=== PATIENT | male | born 1940 | race Caucasian/White ===

== ENCOUNTER → 2016-10-19 | Outpatient (CLI) | payer OTHER ==
--- NOTE | 2016-10-19 15:50 | RADRPT ---
PROCEDURE: XR Pelvis and Hips. CLINICAL INDICATION: Pelvic pain. Bilateral hip pain. TECHNIQUE: Five views. Frontal pelvis. Frontal and lateral right hip. Frontal and lateral left hip. COMPARISON: No prior studies are available for comparison. FINDINGS: There is no fracture or dislocation. The soft tissues are normal. There are degenerative changes of the both hips with joint space narrowing and osteophytes. Left is worse than right. There is no lytic or blastic lesion. Surgical clips are present in the left inguinal region. IMPRESSION: 1. 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 2. Prior left inguinal region surgery. RPTAT: QQ .Marquez Munson MD, MD Date Time Electronically viewed and signed by .Marquez Munson MD, MD on 10/19/2016 15:50 .R/
== END | disposition home or self-care (01) ==
LOC: HKI 15:58
PROVIDERS: ATTEND Orthopaedic Surgery
DX: M25.552 Pain in left hip (principal); M16.12 Unilateral primary osteoarthritis, left hip; E66.01 Morbid (severe) obesity due to excess calories
CPT/HCPCS: 73502; G0463